=== PATIENT | male | born 1960 ===

== ENCOUNTER → 2016-08-29 | Outpatient (CLI) | payer BC ==
--- NOTE | 2016-08-29 14:08 | Diagnostic Imaging Report ---
INDICATION: Cough x 2 months. TECHNIQUE: PA and lateral views of the chest were obtained at 1:37 PM. FINDINGS: The heart and mediastinal silhouette are normal in appearance. The lungs are clear. There is no pneumothorax or pleural fluid. There is mild hyperinflation. IMPRESSION: Mild hyperinflation. No acute infiltrate or pleural fluid. Dictated by: Dictated on workstation # [id number]
== END ==
LOC: RAD 13:29
PROVIDERS: ATTEND Family Medicine
DX: R05 Cough (principal)
CPT/HCPCS: 71020

== ENCOUNTER → 2016-09-07 | Outpatient (CLI) | payer BC | LOC: RT 08:59 | PROVIDERS: ATTEND Family Medicine | DX: R05 Cough (principal) | CPT/HCPCS: 94060; 94726; 94729 ==